=== PATIENT | female | born 1945 | race Caucasian/White ===

== ENCOUNTER → 2016-05-29 | Outpatient (CLI) | payer OTHER ==
--- NOTE | 2016-05-29 16:15 | MA ---
Screening Digital Mammogram With Tomosynthesis Clinical Indications: Routine screening. Technique: Standard digital cephalocaudal and tomosynthesis mediolateral oblique projections are obt ained. An additional digital cc view is performed of the right breast. The digital images were proces sed by the [employer] computer aided detection system. Comparison: March 2015, March 2013, January 2012 and January 2011 Breast density: B; There are scattered fibroglandular densities. Findings: CAD was reviewed. No suspicious findings are identified. Impression: Negative mammogram. BI-RADS 1. Recommendation: Routine screening is recommended in one year. [facility] will send a result letter to the patient. Negative mammography should not preclude additional workup of a clinically suspicious finding. The patient's information is entered into a reminder system with a target due date for her next mammo gram.
== END ==
LOC: FIMAGING 14:19
DX: Z12.31 Encounter for screening mammogram for malignant neoplasm of breast (principal)
CPT/HCPCS: G0202

== ENCOUNTER 2016-10-20 04:14 | Emergency (ER) | payer OTHER ==
--- NOTE | 2016-10-20 04:37 | EDPHY ---
H & P Stated Complaint: palpatation-recent thyroid med change Time Seen by Provider: 10/20/16 04:25 HPI/ROS: HPI The patient presents with palpitations which have been present intermittently for the last 2 days though became worse tonight while she was lying in bed. They kept her from falling back asleep at approximately 2:15 a.m.. She has been feeling them ever since. They are moderate in severity. She did start nature Thyroid 2 days ago as prescribed by her hris administrator. She says she is feeling nauseated, somewhat short of breath and anxious. She has no prior history of similar.. REVIEW OF SYSTEMS Constitutional: No fever, no chills. Eyes: No discharge. ENT: No sore throat. Cardiovascular: No chest pain, no palpitations. Respiratory: No cough, no shortness of breath. Gastrointestinal: No abdominal pain, no vomiting. Genitourinary: No hematuria. Musculoskeletal: No back pain. Skin: No rashes. Neurological: No headache. PMHx: Status post thyroidectomy Soc Hx: Lives at home with her PHYSICAL General Appearance: Alert, no distress Eyes: Pupils equal and round no pallor or injection ENT, Mouth: Mucous membranes moist Respiratory: There are no retractions, lungs are clear to auscultation Cardiovascular: Regular rate and rhythm Gastrointestinal: Abdomen is soft and non-tender, no masses, bowel sounds normal Neurological: A&O, moves all extremities Skin: Warm and dry, no rashes Musculoskeletal: Neck is supple non tender Extremities: symmetrical, full range of motion Psychiatric: Patient is oriented X 3, there is no agitation Source: Patient Exam Limitations: No limitations - Personal History Current Tetanus Diphtheria and Acellular Pertussis (TDAP): Yes - Medical/Surgical History Hx Asthma: No Hx Chronic Respiratory Disease: No Hx Diabetes: No Hx Cardiac Disease: No Hx Renal Disease: No Hx Cirrhosis: No Hx Alcoholism: No Hx HIV/AIDS: No Hx Splenectomy or Spleen Trauma: No Other PMH: thyroidectomy, parethyroiddectomy, TNA, ovarain cyst, hysterectomy, hemorroidectomy, breast lumpectomy(benign), acoustic neuroma, cataracts, - Social History Smoking Status: Never smoked Constitutional: Initial Vital Signs Temperature (C) 36.6 C 10/20/16 04:26 Heart Rate 101 H 10/20/16 04:26 Respiratory Rate 18 10/20/16 04:26 Blood Pressure 161/93 H 10/20/16 04:26 O2 Sat (%) 96 10/20/16 04:26 O2 Delivery Mode Room Air Allergies/Adverse Reactions: gentamicin [Gentamicin] Allergy (Unverified 10/20/16 04:25) neomycin [Neomycin] Allergy (Unverified 10/20/16 04:25) Penicillins Allergy (Unverified 10/20/16 04:25) Sulfa (Sulfonamide Antibiotics) Allergy (Unverified 10/20/16 04:25) tobramycin Allergy (Unverified 10/20/16 04:25) Home Medications: Medication Instructions Recorded ARMOUR THYROID 10/20/16 Synthroid 10/20/16 Medical Decision Making - Diagnostics EKG Interpretation: EKG: Complete interpretation has been separately recorded in the [employer] archive. Summary impression: Premature atrial complexes Imaging Results: Chest x-ray one view shows no cardiomegaly, no effusion, interpreted by me, radiology interpretation is pending. Imaging: I viewed and interpreted images myself Differential Diagnosis: This is a 71-year-old female status post thyroidectomy who presents with palpitations for the last 2 days after starting nature thyroid medication. Differential diagnosis includes atrial fibrillation, atrial flutter, V-tach, premature beats. In the emergency room, the patient was monitored on the crushed stone grader and was noted to have frequent PACs. Labs were checked and were relatively unremarkable except for TSH which was low. I feel her symptoms could have been provoked by the change in her thyroid medication. I have advised her to hold her morning dose of nature thyroid and contact her hris administrator this morning. She is in agreement with this plan. She will be discharged in good condition. - Data Points Laboratory Results: Laboratory Results 10/20/16 04:35 10/20/16 04:35 Departure - Departure Disposition: Home, Routine, Self-Care Clinical Impression: Premature atrial complexes, Low TSH level Condition: Good Instructions: Palpitations (ED) Additional Instructions: Your testing today shows a your having premature atrial complexes. Because of this I recommend that you hold your nature thyroid medication until you talk to your hris administrator. Also, you should make sure to drink plenty of fluids, avoid excess alcohol or caffeine use. If these continue to be a problem, you may need follow-up with the title department manager. Your TSH level was 0.22. Referrals: Daysi Carlson MD [Primary Care Provider] - As per Instructions
[2016-10-20 04:47] LABS: % IMMATURE GRANULYOCYTES 0.3 % (0.0-1.1); ABSOLUTE IMMATURE GRANULOCYTES 0.05 10^3/uL (0.00-0.10); ADD DIFF? NO; ADD MORPH? NO; ADD SCAN? NO; ATYPICAL LYMPHOCYTE FLAG 10 (0-99); FRAGMENT RBC FLAG 0 (0-99); HEMATOCRIT 41.1 % (38.0-47.0); LEFT SHIFT FLG 10 (0-99); LIPEMIA HEMOLYSIS FLAG 90 (0-99); MEAN CELL HEMOGLOBIN CONCENTR. 34.1 g/dL (32.4-36.7); MEAN PLATELET VOLUME 9.6 fL (8.7-11.7); PLATELET CLUMPS FLAG 0 (0-99); PLATELET COUNT 268 10^3/uL (150-400); RED BLOOD CELL COUNT 4.67 10^6/uL (4.18-5.33); RED CELL DISTRIBUTION WIDTH 13.2 % (11.5-15.2)
[2016-10-20 04:58] LABS: ANION GAP 11 mEq/L (8-16); CALCIUM 9.9 mg/dL (8.5-10.4); CARBON DIOXIDE 22 mEq/l (22-31); CHLORIDE 106 mEq/L (97-110); CREATININE 0.8 mg/dL (0.6-1.0); GLOMERULAR FILTRATION RATE > 60; GLUCOSE 92 mg/dL (70-100); POTASSIUM 3.7 mEq/L (3.5-5.2); SODIUM 139 mEq/L (134-144)
[2016-10-20 05:10] LABS: TROPONIN I < 0.012 ng/mL (0-0.034)
[2016-10-20 06:00] VITALS: RESP 16
[2016-10-20 06:18] VITALS: BP 133/66; PULSE 83; TEMP 98.2; O2SAT 94
== END 2016-10-20 06:18 | disposition home or self-care (01) ==
DX: I49.1 Atrial premature depolarization (principal); R94.6 Abnormal results of thyroid function studies

== ENCOUNTER 2016-10-29 17:55 | Emergency (ER) | payer OTHER ==
[2016-10-29 18:06] VITALS: TEMP 98.4
--- NOTE | 2016-10-29 18:38 | EDPHY ---
H & P Stated Complaint: seen 1 wk ago/piv r forearm now with ?hematoma Time Seen by Provider: 10/29/16 18:09 HPI/ROS: CHIEF COMPLAINT: Hematoma HISTORY OF PRESENT ILLNESS: Patient is a 71-year-old man who female who comes to the emergency department complaining of a hematoma to her right forearm. She states that she was here a week ago and had IV placed in that vein. It seemed to be doing well until today she noticed some bruising and slight swelling. No erythema. She was concerned about aneurysms because her mom from a brain aneurysm. Normal range of motion sensation and movement. Normal strength. REVIEW OF SYSTEMS: Constitutional: denies: chills, fever, recent illness, recent injury EENTM: denies: blurred vision, double vision, nose congestion Respiratory: denies: cough, shortness of breath Cardiac: denies: chest pain, irregular heart rate, lightheadedness, palpitations Gastrointestinal/Abdominal: denies: abdominal pain, diarrhea, nausea, vomiting, blood streaked stools Genitourinary: denies: dysuria, frequency, hematuria, pain Musculoskeletal: denies: joint pain, muscle pain Skin: See HPI Neurological: denies: headache, numbness, paresthesia, tingling, dizziness, weakness Hematologic/Lymphatic: denies: blood clots, easy bleeding, easy bruising Immunologic/allergic: denies: HIV/AIDS, transplant EXAM: GENERAL: Well-appearing, well-nourished and in no acute distress. HEAD: Atraumatic, normocephalic. EYES: Pupils equal round and reactive to light, extraocular movements intact, sclera anicteric, conjunctiva are normal. ENT: TMs normal, nares patent, oropharynx clear without exudates. Moist mucous membranes. NECK: Normal range of motion, supple without lymphadenopathy or JVD. LUNGS: Breath sounds clear to auscultation bilaterally and equal. No wheezes rales or rhonchi. HEART: Regular rate and rhythm without murmurs, rubs or gallops. ABDOMEN: Soft, nontender, normoactive bowel sounds. No guarding, no rebound. No masses appreciated. BACK: No CVA tenderness, no spinal tenderness, step-offs or deformities EXTREMITIES: Small hematoma to right forearm. No erythema, no warmth. Normal range of motion, no pitting or edema. No clubbing or cyanosis. NEUROLOGICAL: Cranial nerves II through XII grossly intact. Normal speech, normal gait. 5/5 strength, normal movement in all extremities, normal sensation PSYCH: Normal mood, normal affect. SKIN: Warm, dry, normal turgor, no visible rashes or lesions. Source: Patient Exam Limitations: No limitations - Personal History Current Tetanus/Diphtheria Vaccine: Yes - Medical/Surgical History Hx Asthma: No Hx Chronic Respiratory Disease: No Hx Diabetes: No Hx Cardiac Disease: No Hx Renal Disease: No Hx Cirrhosis: No Hx Alcoholism: No Hx HIV/AIDS: No Hx Splenectomy or Spleen Trauma: No Other PMH: thyroidectomy, parethyroiddectomy, TNA, ovarain cyst, hysterectomy, hemorroidectomy, breast lumpectomy(benign), acoustic neuroma, cataracts, - Social History Smoking Status: Never smoked Alcohol Use: Sober Drug Use: None Constitutional: Initial Vital Signs Temperature (C) 36.9 C 10/29/16 18:03 Heart Rate 80 10/29/16 18:03 Respiratory Rate 18 10/29/16 18:03 Blood Pressure 140/74 H 10/29/16 18:03 O2 Sat (%) 96 10/29/16 18:03 O2 Delivery Mode Room Air Allergies/Adverse Reactions: gentamicin [Gentamicin] Allergy (Verified 10/29/16 18:03) neomycin [Neomycin] Allergy (Verified 10/29/16 18:03) Penicillins Allergy (Verified 10/29/16 18:03) Sulfa (Sulfonamide Antibiotics) Allergy (Verified 10/29/16 18:03) tobramycin Allergy (Verified 10/29/16 18:03) Home Medications: Medication Instructions Recorded Levothyroxine 10/29/16 Naturethroid 10/29/16 Medical Decision Making ED Course/Re-evaluation: The patient clinically has a hematoma. it is to distal to be a DVT. it does not have a thrill. I will treat it with Frank wrap ice and elevation. Patient is happy with this plan and declines further workup or testing. Differential Diagnosis: Partial list of the Differential diagnosis considered include but were not limited to; hematoma, thrombosis and although unlikely based on the history and physical exam, I also considered pseudoaneurysm, infection. I discussed these differential diagnoses and the plan with the patient as well as the usual and expected course. The patient understands that the diagnosis is provisional and that in medicine we are not always correct and that further workup is often warranted. Usual and customary warnings were given. All of the patient's questions were answered. The patient was instructed to return to the emergency department should the symptoms at all worsen or return, otherwise to followup with the physician as we discussed. Departure - Departure Disposition: Home, Routine, Self-Care Clinical Impression: Hematoma Condition: Fair Instructions: Hematoma (ED) Referrals: Daysi Carlson MD [Primary Care Provider] - As per Instructions
[2016-10-29 18:57] VITALS: BP 128/82; PULSE 76; RESP 16; O2SAT 97
== END 2016-10-29 18:55 | disposition home or self-care (01) ==
DX: M79.81 Nontraumatic hematoma of soft tissue (principal); Z88.0 Allergy status to penicillin; Z88.2 Allergy status to sulfonamides

== ENCOUNTER → 2016-12-29 | Outpatient (CLI) | payer OTHER | LOC: FIMAGING 10:23 | PROVIDERS: ATTEND Family Medicine | DX: R91.1 Solitary pulmonary nodule (principal) ==

== ENCOUNTER → 2018-03-29 | Outpatient (CLI) | payer OTHER | LOC: FIMAGING 12:57 | PROVIDERS: ATTEND Internal Medicine | DX: Z13.820 Encounter for screening for osteoporosis (principal); M81.0 Age-related osteoporosis without current pathological fracture; Z78.0 Asymptomatic menopausal state; Z79.890 Hormone replacement therapy ==